=== PATIENT | male | born 1975 | race African-American/Black ===

== ENCOUNTER 2018-08-25 20:00 | Emergency (ER) | payer OTHER ==
[~2018-08-25] VITALS: Ht 175.3 cm; Wt 73.5 kg
[2018-08-25 20:04] VITALS: Ht 175.3 cm; Wt 73.5 kg
[2018-08-25 21:31] VITALS: BP 167/98
== END 2018-08-25 21:31 | disposition home or self-care (01) ==
LOC: ED 20:00
DX: B35.3 Tinea pedis (principal); M20.11 Hallux valgus (acquired), right foot

== ENCOUNTER 2019-01-26 06:09 | Day surgery (SDC) | payer OTHER ==
[2019-01-21 10:30] LABS: CALCIUM 9.1 mg/dL (8.5-10.1); CARBON DIOXIDE 27.3 mmol/L (21-32); CHLORIDE SERUM 103 mmol/L (98-107); CREATININE SERUM 1.1 mg/dL (0.7-1.3); GFR1 > 60 mL/min; GLUCOSE SERUM 104 mg/dL (74-106); POTASSIUM SERUM 4.4 mmol/L (3.5-5.1); SODIUM SERUM 138 mmol/L (136-145)
[2019-01-21 10:43] LABS: BASOPHIL % 0.1 % (0-2); PLATELET COUNT 239 x10^3mcL (130-400)
[2019-01-21 10:44] LABS: RED CELL DISTRIBUTION WIDTH 14.6 % (11.5-14.5)
[~2019-01-26] VITALS: Ht 175.3 cm; Wt 74.4 kg
[2019-01-26 06:32] VITALS: BP 153/96
[2019-01-26 11:10] VITALS: BP 130/92
== END 2019-01-26 10:50 | disposition home or self-care (01) ==
LOC: DS 06:09 → OR 07:30 → DS 07:30
PROVIDERS: Podiatrist
PROC: 0HQMXZZ Repair Right Foot Skin, External Approach (ICD-10-PCS; 2019-01-26)
PROC: 0SRP0JZ Replacement of Right Toe Phalangeal Joint with Synthetic Substitute, Open Approach (ICD-10-PCS; principal; 2019-01-26 07:30)
DX: M20.41 Other hammer toe(s) (acquired), right foot (principal); L85.1 Acquired keratosis [keratoderma] palmaris et plantaris; M79.671 Pain in right foot; I10 Essential (primary) hypertension; Z68.26 Body mass index [BMI] 26.0-26.9, adult
CPT/HCPCS: 97116-GP; J0690; J1170; J2001; J2405; J2704; J3010; J3490; J7120

== ENCOUNTER 2019-06-13 12:32 | Emergency (ER) | payer OTHER ==
[~2019-06-13] VITALS: Ht 175.3 cm; Wt 69.4 kg
[2019-06-13 12:47] VITALS: Ht 175.3 cm; Wt 69.4 kg
[2019-06-13 15:04] VITALS: BP 140/95
== END 2019-06-13 15:04 | disposition home or self-care (01) ==
LOC: ED 12:32
DX: I10 Essential (primary) hypertension (principal); F41.9 Anxiety disorder, unspecified